=== PATIENT | male | born 1960 | race Caucasian/White ===

== ENCOUNTER → 2016-11-04 | Outpatient (CLI) | payer MEDICARE, MEDICAID ==
[2016-11-04 10:34] LABS: CHOLESTEROL 121.31 mg/dL (0-200); Direct HDL 35 mg/dL (>40); TRIGLYCERIDES 79 mg/dL (<150)
[2016-11-04 10:46] LABS: DIRECT LDL 71 mg/dL (<100)
== END ==
LOC: OD 09:24
PROVIDERS: ATTEND Internal Medicine
DX: E78.5 Hyperlipidemia, unspecified (principal); E55.9 Vitamin D deficiency, unspecified
CPT/HCPCS: 36415; 80061; 82607

== ENCOUNTER 2017-02-23 01:03 | Emergency (ER) | payer MEDICARE, MEDICAID ==
[2017-02-23] MEDS ORDERED: NORMAL SALINE 1000 ML 500 ML IV ONE (01:30)
--- NOTE | 2017-02-23 01:53 | ER Document Report ---
ED General - General Stated Complaint: CHEST DISCOMFORT Time Seen by Provider: 02/23/17 01:30 Notes: Patient is a 57-year-old male that comes emergency department for chief complaint of right-sided chest discomfort that started about 3 hours prior to arrival tonight, but he denies shortness of breath, abdominal pain, nausea, radiation to the back. He rates the pain as only 2 out of 10. He states she is allergic to aspirin. Patient was given sublingual nitroglycerin by EMS, patient states afterwards he started getting lightheaded. Past medical history of [place] with stents 2 in 2008, hyperlipidemia, hypertension, patient unsure of remaining diagnoses but he is on Spironolactone and Risperdal. Former smoker. Denies alcohol. TRAVEL OUTSIDE OF THE [place] IN LAST 30 DAYS: No Past Medical History - General Information source: Patient - Social History Smoking Status: Former Smoker Frequency of alcohol use: None Drug Abuse: None Lives with: Family Family History: None - Past Medical History Cardiac Medical History: Reports: Hx Coronary Artery Disease, Hx Heart Attack - x3, Hx Hypercholesterolemia, Hx Hypertension GI Medical History: Reports: Hx Gastroesophageal Reflux Disease Past Surgical History: Reports: Hx Cardiac Catheterization - reports 2 stents - Immunizations Hx Diphtheria, Pertussis, Tetanus Vaccination: Yes Review of Systems - Review of Systems Constitutional: No symptoms reported EENT: No symptoms reported Cardiovascular: See HPI Respiratory: No symptoms reported Gastrointestinal: No symptoms reported Genitourinary: No symptoms reported Male Genitourinary: No symptoms reported Musculoskeletal: No symptoms reported Skin: No symptoms reported Hematologic/Lymphatic: No symptoms reported Neurological/Psychological: No symptoms reported Physical Exam - Vital signs Vitals: BP 93/59 L 02/23/17 01:13 Interpretation: Normal - General General appearance: Appears well, Alert In distress: None - HEENT Head: Normocephalic, Atraumatic Eyes: Normal Pupils: PERRL - Respiratory Respiratory status: No respiratory distress Chest status: Tender - minimal discomfort with palpation of the right side of the chest over the lower aspect (no wincing, by statement only); normal appearance of the chest with no erythema, swelling, ecchymosis or other abnormality Breath sounds: Normal. No: Decreased air movement, Wheezing Chest palpation: Normal - Cardiovascular Rhythm: Regular, Bradycardia Heart sounds: Normal auscultation, S1 appreciated, S2 appreciated Murmur: No - Abdominal Inspection: Normal Distension: No distension Bowel sounds: Normal Tenderness: Nontender. No: Tender Organomegaly: No organomegaly - Back Back: Normal, Nontender - Extremities General upper extremity: Normal inspection, Nontender, Normal color, Normal ROM , Normal temperature General lower extremity: Normal inspection, Nontender, Normal color, Normal ROM , Normal temperature, Normal weight bearing. No: Greg's sign - Neurological Neuro grossly intact: Yes Cognition: Normal Orientation: AAOx4 [place] Coma Scale Eye Opening: Spontaneous Jose E Coma Scale Verbal: Oriented Jose E Coma Scale Motor: Obeys Commands Jose E Coma Scale Total: 15 Speech: Normal Motor strength normal: LUE, RUE, LLE, RLE Sensory: Normal - Psychological Associated symptoms: Normal affect, Normal mood - Skin Skin Temperature: Warm Skin Moisture: Dry Skin Color: Normal Course - Re-evaluation Re-evalutation: 02/23/17 01:30 On initial evaluation patient is pale, slightly diaphoretic, blood pressure noted to be systolic in the 80s, patient immediately placed in Trendelenburg, given 500 cc bolus of IV fluids. Blood pressure normalized, patient states lightheadedness resolved, patient's color returned to normal. Suspect this was from the sublingual nitroglycerin. Workup pending. Patient remained bradycardic and borderline hypotensive, patient states this is his norm, he used to be on Midrin for this but he became hypertensive and this was taken off. This is his baseline. Patient reevaluated again and remains comfortable. EKG showing bradycardia with no significant change from prior, chest x-ray unremarkable, CBC very similar to previous, chemistry generally unremarkable, initial cardiac enzymes negative. Cardiac enzymes repeated and still negative. On reexaminations patient continues to be asymptomatic. 02/23/17 06:00 Patient with a heart score of 3 which was him in the low risk category. Very atypical symptoms with mild 2 out of 10 right-sided lower chest pain which resolved after a few minutes. Patient denying any current chest pain. Stress test last year was normal. 2 sets of negative troponins. Chest x-ray unremarkable. EKG baseline showing patient already present bradycardia. Discussed with Dr. Grigsby. Discussed admission for chest pain rule out with patient, patient declines, states he will follow closely with his program mgr and return if he has return or worsening of pain. - Vital Signs Vital signs: Temp Pulse Resp BP Pulse Ox 97.9 F 10 L 112/61 98 02/23/17 06:10 02/23/17 06:01 02/23/17 06:01 02/23/17 06:01 - Laboratory Result Diagrams: 02/23/17 01:30 02/23/17 01:30 Laboratory results interpreted by me: 02/23/17 02/23/17 01:30 01:30 RBC 3.23 L Hgb 12.2 L Hct 36.4 L MCV 113 H MCH 37.7 H RDW 14.6 H Plt Count 100 L Monocytes % 16.9 H Absolute Monocytes 1.6 H Carbon Dioxide 20 L BUN 25 H Glucose 128 H Calcium 8.0 L AST 9 L Creatine Kinase 44 L Discharge - Discharge Clinical Impression: Right-sided chest pain Condition: Stable Disposition: HOME, SELF-CARE Additional Instructions: Your workup does not show any acute abnormality. The cause of your symptoms at this time are uncertain. Please follow up in the next 2 days with your [employer] E[employer]ctor. Return to the ED for any returned or concerning symptoms.
[2017-02-23 01:59] LABS: ALANINE AMINOTRANSFERASE 22 U/L (21-72); ALBUMIN 3.7 g/dL (3.5-5.0); ALKALINE PHOSPHATASE 90 U/L (38-126); ANION GAP 11 (5-19); ASPARTATE AMINO TRANSFERASE 9 U/L (17-59); BILIRUBIN,DIRECT 0.3 mg/dL (0.0-0.4); BILIRUBIN,TOTAL 0.7 mg/dL (0.2-1.3); BLOOD UREA NITROGEN 25 mg/dL (7-20); CARBON DIOXIDE 20 mmol/L (22-30); CHLORIDE 107 mmol/L (98-107); CREATINE KINASE 44 U/L (55-170); CREATININE RESULT 1.09 mg/dL (0.52-1.25); GLUCOSE 128 mg/dL (75-110); POTASSIUM 4.6 mmol/L (3.6-5.0); SODIUM 137.8 mmol/L (137-145); TOTAL PROTEIN 6.5 g/dL (6.3-8.2)
[2017-02-23 02:11] LABS: CREATINE KINASE MB < 0.22 ng/mL (<4.55); TROPONIN I < 0.012 ng/mL
[2017-02-23 02:17] LABS: ABSOLUTE EOSINOPHILS # (AUTO) 0.3 10^3/uL (0.0-0.6); ABSOLUTE LYMPHOCYTES (AUTO) 2.4 10^3/uL (0.5-4.7); ABSOLUTE MONOCYTES (AUTO) 1.6 10^3/uL (0.1-1.4); BASOPHILS % (AUTO) 0.3 % (0-2); EOSINOPHILS % (AUTO) 2.8 % (0-6); HEMATOCRIT 36.4 % (37.9-51.0); HEMOGLOBIN 12.2 g/dL (13.5-17.0); HGB HCT DIFFERENCE 0.2; LYMPHOCYTES % (AUTO) 26.2 % (13-45); MEAN CORPUSCULAR HEMOGLOBIN 37.7 pg (27.0-33.4); MEAN CORPUSCULAR HGB CONC 33.4 g/dL (32.0-36.0); MONOCYTES % (AUTO) 16.9 % (3-13); RED BLOOD COUNT 3.23 10^6/uL (4.35-5.55); RED CELL DISTRIBUTION WIDTH 14.6 % (11.5-14.0); SEGMENTED NEUTROPHILS % (AUTO) 53.8 % (42-78); WHITE BLOOD COUNT 9.3 10^3/uL (4.0-10.5)
[2017-02-23 02:29] LABS: MEAN CORPUSCULAR VOLUME 113 fl (80-97)
[2017-02-23 02:33] LABS: ANISOCYTOSIS SLIGHT; OVALOCYTES SLIGHT; TOXIC GRANULATION SLIGHT
--- NOTE | 2017-02-23 02:54 | RADIOLOGY REPORT (SQ) ---
EXAM DESCRIPTION: CHEST SINGLE VIEW COMPLETED DATE/TIME: 02/23/2017 2:40 am REASON FOR STUDY: cp COMPARISON: 07/16/2016. EXAM PARAMETERS: NUMBER OF VIEWS: One view. TECHNIQUE: Single frontal radiographic view of the chest acquired. RADIATION DOSE: NA LIMITATIONS: None. FINDINGS: LUNGS AND PLEURA: No opacities, masses or pneumothorax. No pleural effusion. MEDIASTINUM AND HILAR STRUCTURES: No masses. Contour normal. HEART AND VASCULAR STRUCTURES: Heart normal in size. Normal vasculature. BONES: Moderate deformity of the left mid clavicle. HARDWARE: None in the chest. OTHER: No other significant finding. IMPRESSION: NO ACUTE RADIOGRAPHIC FINDING IN THE CHEST. TECHNICAL DOCUMENTATION: JOB ID: [id number]
[2017-02-23 06:30] VITALS: BP 112/61
--- NOTE | 2017-02-23 21:13 | EKG REPORT ---
SEVERITY:- ABNORMAL ECG - SINUS RHYTHM INFERIOR INFARCT, OLD ANTERIOR INFARCT, AGE INDETERMINATE : Confirmed by: Yanet Jaquez 23-Feb-2017 21:12:18
[2017-02-24 12:14] LABS: PATH REVIEW PATHOLOGIST REVIEWED
== END 2017-02-23 06:10 | disposition home or self-care (01) ==
LOC: ER 01:03
DX: R07.9 Chest pain, unspecified (principal); Z87.891 Personal history of nicotine dependence; I25.2 Old myocardial infarction
CPT/HCPCS: 36415; 71010; 80053; 82550; 82553; 84484; 85025; 93005; 93010; 99285

== ENCOUNTER → 2017-06-02 | Outpatient (CLI) | payer MEDICARE, MEDICAID ==
[2017-06-02 11:01] LABS: ABSOLUTE EOSINOPHILS # (AUTO) 0.2 10^3/uL (0.0-0.6); ABSOLUTE MONOCYTES (AUTO) 1.1 10^3/uL (0.1-1.4); ABSOLUTE NEUT (AUTO) 3.2 10^3/uL (1.7-8.2); BASOPHILS % (AUTO) 0.3 % (0-2); EOSINOPHILS % (AUTO) 2.9 % (0-6); HEMATOCRIT 37.7 % (37.9-51.0); HEMOGLOBIN 12.8 g/dL (13.5-17.0); HGB HCT DIFFERENCE 0.7; LYMPHOCYTES % (AUTO) 39.2 % (13-45); MEAN CORPUSCULAR HEMOGLOBIN 37.7 pg (27.0-33.4); RED BLOOD COUNT 3.41 10^6/uL (4.35-5.55); RED CELL DISTRIBUTION WIDTH 14.9 % (11.5-14.0); SEGMENTED NEUTROPHILS % (AUTO) 42.6 % (42-78); WHITE BLOOD COUNT 7.6 10^3/uL (4.0-10.5)
[2017-06-02 11:04] LABS: MEAN CORPUSCULAR VOLUME 111 fl (80-97)
[2017-06-02 11:19] LABS: ALANINE AMINOTRANSFERASE 20 U/L (21-72); ALKALINE PHOSPHATASE 109 U/L (38-126); ANION GAP 9 (5-19); ASPARTATE AMINO TRANSFERASE 12 U/L (17-59); BILIRUBIN,DIRECT 0.3 mg/dL (0.0-0.4); BILIRUBIN,TOTAL 0.8 mg/dL (0.2-1.3); BLOOD UREA NITROGEN 21 mg/dL (7-20); CALCIUM 9.1 mg/dL (8.4-10.2); CARBON DIOXIDE 24 mmol/L (22-30); CHLORIDE 107 mmol/L (98-107); CHOLESTEROL 117.98 mg/dL (0-200); CREATININE RESULT 1.16 mg/dL (0.52-1.25); Direct HDL 33 mg/dL (>40); GLUCOSE 98 mg/dL (75-110); POTASSIUM 4.9 mmol/L (3.6-5.0); SODIUM 140.4 mmol/L (137-145); TOTAL PROTEIN 7.1 g/dL (6.3-8.2); TRIGLYCERIDES 106 mg/dL (<150)
[2017-06-02 11:30] LABS: TOXIC GRANULATION SLIGHT
[2017-06-02 11:31] LABS: ANISOCYTOSIS SLIGHT; OVALOCYTES 1+; PLATELET CLUMPS PRESENT; POIKILOCYTOSIS SLIGHT; TARGET CELLS SLIGHT
[2017-06-02 11:42] LABS: DIRECT LDL 68 mg/dL (<100)
[2017-06-03 09:31] LABS: PATH REVIEW PATHOLOGIST REVIEWED
== END ==
LOC: OD 09:42
PROVIDERS: ATTEND Family Medicine Geriatric Medicine
DX: I10 Essential (primary) hypertension (principal); E78.5 Hyperlipidemia, unspecified; E53.9 Vitamin B deficiency, unspecified; Z79.899 Other long term (current) drug therapy
CPT/HCPCS: 36415; 80053; 80061; 82607; 84443; 85025

== ENCOUNTER → 2018-02-16 | Outpatient (CLI) | payer MEDICARE, MEDICAID ==
--- NOTE | 2018-02-16 15:05 | RADIOLOGY REPORT (SQ) ---
EXAM DESCRIPTION: LUMBAR SPINE COMPLETE COMPLETED DATE/TIME: 02/16/2018 2:18 pm REASON FOR STUDY: LOW BACK PAIN M54.5 LOW BACK PAIN COMPARISON: CT abdomen pelvis 04/13/2014 NUMBER OF VIEWS: Five views including obliques. TECHNIQUE: AP, lateral, oblique, and sacral radiographic images acquired of the lumbar spine. LIMITATIONS: None. FINDINGS: MINERALIZATION: Osteopenic SEGMENTATION: Normal. No transitional anatomy. ALIGNMENT: Normal. VERTEBRAE: Maintained height. No fracture or worrisome bone lesion. DISCS: Disc space height is preserved. POSTERIOR ELEMENTS: Post bilateral laminectomy at L4 and L5 HARDWARE: Disc spacers at L4-5 and L5-S1. Bilateral transpedicular screws and dorsal fixation plates at L4, L5, and S1. PARASPINAL SOFT TISSUES: Normal. PELVIS: Not included in the field of view. SI joints unremarkable OTHER: No other significant finding. IMPRESSION: Lower lumbar fusion. No acute findings. TECHNICAL DOCUMENTATION: JOB ID: [id number] [email or web address]- All Rights Reserved Reading location - IP/workstation name: [email or web address]
--- NOTE | 2018-02-16 15:07 | RADIOLOGY REPORT (SQ) ---
EXAM DESCRIPTION: SACRUM AND COCCYX COMPLETED DATE/TIME: 02/16/2018 2:18 pm REASON FOR STUDY: LOW BACK PAIN M54.5 LOW BACK PAIN COMPARISON: Lumbar spine films same date CT abdomen pelvis 04/13/2014 NUMBER OF VIEWS: Three views. TECHNIQUE: AP, lateral, and tilt views of the sacrum and coccyx. LIMITATIONS: None. FINDINGS: MINERALIZATION: Osteopenic BONES: No acute fracture or dislocation. No worrisome bone lesions. SOFT TISSUES: No soft tissue swelling. No foreign body. OTHER: SI joints are unremarkable. Lower lumbar fusion hardware at L4-5 and L5-S1. IMPRESSION: No acute findings TECHNICAL DOCUMENTATION: JOB ID: [id number] [employer]- All Rights Reserved Reading location - IP/workstation name: [email or web address]
== END ==
LOC: OD 14:01
PROVIDERS: ATTEND Family Medicine Geriatric Medicine
DX: M54.5 Low back pain (principal)
CPT/HCPCS: 72110; 72220

== ENCOUNTER → 2018-04-19 | Outpatient (CLI) | payer MEDICARE, MEDICAID ==
[2018-04-19 11:05] LABS: ABSOLUTE EOSINOPHILS # (AUTO) 0.3 10^3/uL (0.0-0.6); ABSOLUTE LYMPHOCYTES (AUTO) 2.8 10^3/uL (0.5-4.7); ABSOLUTE MONOCYTES (AUTO) 0.9 10^3/uL (0.1-1.4); ABSOLUTE NEUT (AUTO) 2.3 10^3/uL (1.7-8.2); BASOPHILS % (AUTO) 0.4 % (0-2); EOSINOPHILS % (AUTO) 5.1 % (0-6); HEMATOCRIT 37.2 % (37.9-51.0); HEMOGLOBIN 12.5 g/dL (13.5-17.0); LYMPHOCYTES % (AUTO) 44.2 % (13-45); MEAN CORPUSCULAR HEMOGLOBIN 36.7 pg (27.0-33.4); MEAN CORPUSCULAR HGB CONC 33.7 g/dL (32.0-36.0); MEAN CORPUSCULAR VOLUME 109 fl (80-97); MONOCYTES % (AUTO) 14.5 % (3-13); PLATELET COUNT 124 10^3/uL (150-450); RED BLOOD COUNT 3.41 10^6/uL (4.35-5.55); RED CELL DISTRIBUTION WIDTH 14.6 % (11.5-14.0); SEGMENTED NEUTROPHILS % (AUTO) 35.8 % (42-78); TOTAL CELLS COUNTED % (AUTO) 100 %; WHITE BLOOD COUNT 6.4 10^3/uL (4.0-10.5)
[2018-04-19 12:02] LABS: ALANINE AMINOTRANSFERASE 21 U/L (21-72); ALBUMIN 4.1 g/dL (3.5-5.0); ALKALINE PHOSPHATASE 92 U/L (38-126); ANION GAP 11 (5-19); ASPARTATE AMINO TRANSFERASE 13 U/L (17-59); BILIRUBIN,DIRECT 0.3 mg/dL (0.0-0.4); BILIRUBIN,TOTAL 0.8 mg/dL (0.2-1.3); BLOOD UREA NITROGEN 19 mg/dL (7-20); CARBON DIOXIDE 22 mmol/L (22-30); CHLORIDE 109 mmol/L (98-107); CHOLESTEROL 117.91 mg/dL (0-200); GLUCOSE 96 mg/dL (75-110); POTASSIUM 4.7 mmol/L (3.6-5.0); TOTAL PROTEIN 7.7 g/dL (6.3-8.2); TRIGLYCERIDES 138 mg/dL (<150)
[2018-04-19 12:28] LABS: DIRECT LDL 60 mg/dL (<100)
== END ==
LOC: OD 10:11
PROVIDERS: ATTEND Family Medicine Geriatric Medicine
DX: I25.10 Atherosclerotic heart disease of native coronary artery without angina pectoris (principal); I10 Essential (primary) hypertension; E78.5 Hyperlipidemia, unspecified
CPT/HCPCS: 36415; 80053; 80061; 85025

== ENCOUNTER → 2018-08-16 | Outpatient (CLI) | payer MEDICARE, MEDICAID ==
[2018-08-16 10:05] LABS: ABSOLUTE EOSINOPHILS # (AUTO) 0.2 10^3/uL (0.0-0.6); ABSOLUTE LYMPHOCYTES (AUTO) 2.6 10^3/uL (0.5-4.7); ABSOLUTE MONOCYTES (AUTO) 1.1 10^3/uL (0.1-1.4); ABSOLUTE NEUT (AUTO) 2.8 10^3/uL (1.7-8.2); BASOPHILS % (AUTO) 0.6 % (0-2); EOSINOPHILS % (AUTO) 3.1 % (0-6); HEMATOCRIT 37.5 % (37.9-51.0); HEMOGLOBIN 12.8 g/dL (13.5-17.0); LYMPHOCYTES % (AUTO) 38.8 % (13-45); MEAN CORPUSCULAR HEMOGLOBIN 37.2 pg (27.0-33.4); MEAN CORPUSCULAR HGB CONC 34.1 g/dL (32.0-36.0); MEAN CORPUSCULAR VOLUME 109 fl (80-97); MONOCYTES % (AUTO) 16.4 % (3-13); RED BLOOD COUNT 3.44 10^6/uL (4.35-5.55); RED CELL DISTRIBUTION WIDTH 14.8 % (11.5-14.0); SEGMENTED NEUTROPHILS % (AUTO) 41.1 % (42-78); TOTAL CELLS COUNTED % (AUTO) 100 %; WHITE BLOOD COUNT 6.7 10^3/uL (4.0-10.5)
[2018-08-16 10:26] LABS: PLATELET COUNT 119 10^3/uL (150-450)
== END ==
LOC: OD 08:38
PROVIDERS: ATTEND Family Medicine Geriatric Medicine
DX: D69.6 Thrombocytopenia, unspecified (principal); D53.9 Nutritional anemia, unspecified; I25.10 Atherosclerotic heart disease of native coronary artery without angina pectoris
CPT/HCPCS: 36415; 82746; 83090; 85025

== ENCOUNTER 2018-11-08 16:39 | Emergency (ER) | payer MEDICARE, MEDICAID ==
[2018-11-08] MEDS ORDERED: HYDROCODONE/ACETAMINOPHEN 5-325 MG TABLET PO ONE (18:56)
--- NOTE | 2018-11-08 19:00 | ER Document Report ---
ED Medical Screen (RME) - General Chief Complaint: Foot Pain Stated Complaint: SWOLLEN FOOT Time Seen by Provider: 11/08/18 18:47 Primary Care Provider: BAIRON BELTRE MD [Primary Care Provider] - Follow up as needed Mode of Arrival: Ambulatory Information source: Patient Notes: 58-year-old's male presents emergency department with complaints of right foot pain and swelling. Patient states that symptoms started up today. He was seen by his corporate webmaster and told to come to the emergency department for concerns of cellulitis. Patient describes a diffuse throbbing throughout his entire foot as well as a sharp and stabbing sensation at the ball of his foot. He states that the pain is worse with walking. Patient also notes that his toenails have turned green. I have greeted and performed a rapid initial assessment of this patient. A comprehensive ED assessment and evaluation of the patient, analysis of test results and completion of the medical decision making process will be conducted by additional ED providers. PHYSICAL EXAMINATION: GENERAL: Well-appearing, well-nourished and in no acute distress. HEAD: Atraumatic, normocephalic. EYES: Pupils equal round extraocular movements intact, conjunctiva are normal. ENT: Nares patent NECK: Normal range of motion LUNGS: No respiratory distress Musculoskeletal: Normal range of motion NEUROLOGICAL: Normal speech. PSYCH: Normal mood, normal affect. SKIN: warmth, swelling, erythema, and tenderness to palpation to the Left big toe, arch of foot, and plantar surface. TRAVEL OUTSIDE OF THE [place] IN LAST 30 DAYS: No - Related Data Allergies/Adverse Reactions: metoprolol [From Toprol XL] Allergy (Verified 11/08/18 16:47) oxymetazoline [From Afrin (oxymetazoline)] Allergy (Verified 11/08/18 16:47) Penicillins Allergy (Verified 11/08/18 16:47) Past Medical History - Social History Chew tobacco use (# tins/day): No Frequency of alcohol use: None Drug Abuse: None - Past Medical History Cardiac Medical History: Reports: Hx Coronary Artery Disease, Hx Heart Attack - x3, Hx Hypercholesterolemia, Hx Hypertension Renal/ Medical History: Denies: Hx Peritoneal Dialysis GI Medical History: Reports: Hx Gastroesophageal Reflux Disease Past Surgical History: Reports: Hx Cardiac Catheterization - reports 2 stents - Immunizations Hx Diphtheria, Pertussis, Tetanus Vaccination: Yes Physical Exam - Vital signs Vitals: Temp Pulse Resp BP Pulse Ox 97.6 F 65 18 132/65 H 95 11/08/18 17:00 11/08/18 17:00 11/08/18 17:00 11/08/18 17:00 11/08/18 17:00 Course - Vital Signs Vital signs: Temp Pulse Resp BP Pulse Ox 97.6 F 65 18 132/65 H 95 11/08/18 17:00 11/08/18 17:00 11/08/18 17:00 11/08/18 17:00 11/08/18 17:00 Doctor's Discharge - Discharge Referrals: BAIRON BELTRE MD [Primary Care Provider] - Follow up as needed
--- NOTE | 2018-11-08 19:37 | ER Document Report ---
ED General - General Chief Complaint: Foot Pain Stated Complaint: SWOLLEN FOOT Time Seen by Provider: 11/08/18 18:47 Primary Care Provider: GORDON PATEL DPM [ACTIVE STAFF] - Follow up tomorrow BAIRON BELTRE MD [Primary Care Provider] - Follow up in 3-5 days Mode of Arrival: Ambulatory Notes: Patient is a 58-year-old male that presents to the emergency department for chief complaint of left foot pain and redness. Patient states Thursday morning he woke up his foot seem to be red swollen and painful seem to be worse over the last 24 hours as well, he did go to his telephone sterilizer today, and they evaluated this and referred him to the emergency department for concern of cellulitis. He rates the pain is having as a 6 out of 10, worse with walking on it, describes as a constant aching sensation. He denies noting any fevers, chills, night sweats, nausea, vomiting or abdominal pain. He has noticed some swelling in the left foot. Has not noticed any in the right. He states his great toe is the most pain. He also noticed that his toenails turned green over the past 2 days. He has not seen a office support assistant but has been looking to see one because his nails have gotten long and he has not trimmed him. Past Medical History: Hypertension, hyperlipidemia, CHF, CAD Past Surgical History: PCI with stenting Social History: Admits to smoking cigarettes, denies alcohol or drug use. Family History: Reviewed and noncontributory for presenting illness Allergies: Reviewed, see documented allergy list. REVIEW OF SYSTEMS: Other than noted above, the 12 point review of systems was reviewed with the patient and were negative, all pertinent findings are included in the HPI. PHYSICAL EXAMINATION: Vital signs reviewed, nursing noted reviewed. GENERAL: Well-appearing, well-nourished and in no acute distress. HEAD: Atraumatic, normocephalic. EYES: Eyes appear normal, extraocular movements intact, sclera anicteric, conjunctiva are normal. ENT: nares patent, oropharynx clear without exudates. Moist mucous membranes. NECK: Normal range of motion, supple without lymphadenopathy LUNGS: Breath sounds clear to auscultation bilaterally and equal. No wheezes rales or rhonchi. Patient noted to be wearing a LifeVest. HEART: Regular rate and rhythm without murmurs ABDOMEN: Soft, nontender, normoactive bowel sounds. No rebound, guarding, or rigidity. No masses appreciated. EXTREMITIES: The left foot is edematous, with mild erythema on the dorsal aspect, the toes are erythematous throughout, with mild ulceration versus disclamation of the pads of the toes, consistent with trench foot, no active drainage at this time. The toenails are noted to be long, and green in color, to a very milder degree, this is noted on the right foot as well, most noted on the pad of the right great toe. There is tenderness to palpation over the toes of the left foot as well. The rest the patient's extremity exam is grossly unremarkable. NEUROLOGICAL: No focal neurological deficits. Moves all extremities spontaneously Motor and sensory grossly intact on exam. PSYCH: Normal mood, normal affect. SKIN: Warm, Dry, normal turgor, no rashes or lesions noted on exposed skin TRAVEL OUTSIDE OF THE [place] IN LAST 30 DAYS: No - Related Data Allergies/Adverse Reactions: metoprolol [From Toprol XL] Allergy (Verified 11/08/18 16:47) oxymetazoline [From Afrin (oxymetazoline)] Allergy (Verified 11/08/18 16:47) Penicillins Allergy (Verified 11/08/18 16:47) Past Medical History - General Information source: Patient - Social History Smoking Status: Current Every Day Smoker Chew tobacco use (# tins/day): No Frequency of alcohol use: None Drug Abuse: None Family History: None Patient has suicidal ideation: No Patient has homicidal ideation: No - Past Medical History Cardiac Medical History: Reports: Hx Coronary Artery Disease, Hx Heart Attack - x3, Hx Hypercholesterolemia, Hx Hypertension Renal/ Medical History: Denies: Hx Peritoneal Dialysis GI Medical History: Reports: Hx Gastroesophageal Reflux Disease Past Surgical History: Reports: Hx Cardiac Catheterization - reports 2 stents - Immunizations Hx Diphtheria, Pertussis, Tetanus Vaccination: Yes Physical Exam - Vital signs Vitals: Temp Pulse Resp BP Pulse Ox 97.6 F 65 18 132/65 H 95 11/08/18 17:00 11/08/18 17:00 11/08/18 17:00 11/08/18 17:00 11/08/18 17:00 Course - Re-evaluation Re-evalutation: Patient seen and examined vital signs reviewed. Laboratory data and imaging were ordered as appropriate for the patient's presenting symptoms and complaint, with consideration of any critical or life threatening conditions that may be associated with their obtained history and exam as noted above. Patient was treated with [place] for pain, he was started on Levaquin 750 mg p.o. Results were reviewed when available and demonstrated soft tissue swelling on the x-ray, his blood work was unremarkable The patient was re-evaluated and was stable, patient will be discharged with a prescription for Levaquin 750 mg once daily for 7 days, advised to follow-up with podiatry, advised to stop wearing clogs, and to wear socks when he wear shoes, and to not wear socks when sleeping, patient was agreeable and discharged home Evaluation was most consistent with ingrid foot, left foot cellulitis Results were discussed with the patient at this point, after careful consideration I feel that that patient can be discharged from the emergency department, the patient was educated treatments and reasons to return to the emergency department based on their presumed diagnosis as noted above, they were advised to followup with a primary care physician in 2-3 days. Patient was agreeable to plan of care. *Note is created using voice recognition software and may contain spelling, sy ntax or grammatical errors. Laboratory 11/08/18 11/08/18 19:34 19:34 WBC 7.9 RBC 3.65 L Hgb 13.2 L Hct 39.6 MCV 109 H MCH 36.1 H MCHC 33.3 RDW 15.4 H Plt Count 112 L Seg Neutrophils % 43.6 Lymphocytes % 35.2 Monocytes % 18.4 H Eosinophils % 2.3 Basophils % 0.5 Absolute Neutrophils 3.4 Absolute Lymphocytes 2.8 Absolute Monocytes 1.5 H Absolute Eosinophils 0.2 Absolute Basophils 0.0 Sodium 142.5 Potassium 4.1 Chloride 108 H Carbon Dioxide 24 Anion Gap 11 BUN 15 Creatinine 0.99 Est GFR ( Amer) > 60 Est GFR (Non-Af Amer) > 60 Glucose 87 Uric Acid 6.2 Calcium 8.8 Total Bilirubin 1.1 Direct Bilirubin 0.3 Neonat Total Bilirubin Not Reportable Neonat Direct Bilirubin Not Reportable Neonat Indirect Bili Not Reportable AST 10 L ALT 13 L Alkaline Phosphatase 112 Total Protein 7.4 Albumin 4.4 Foot X-Ray 11/08/18 18:56 IMPRESSION: Diffuse dorsal left foot soft tissue swelling. No fracture. No radiopaque foreign body - Vital Signs Vital signs: Temp Pulse Resp BP Pulse Ox 98.1 F 63 16 137/65 H 97 11/08/18 20:34 11/08/18 20:34 11/08/18 20:34 11/08/18 20:34 11/08/18 20:34 - Laboratory Result Diagrams: 11/08/18 19:34 11/08/18 19:34 Laboratory results interpreted by me: 11/08/18 11/08/18 19:34 19:34 RBC 3.65 L Hgb 13.2 L MCV 109 H MCH 36.1 H RDW 15.4 H Plt Count 112 L Monocytes % 18.4 H Absolute Monocytes 1.5 H Chloride 108 H AST 10 L ALT 13 L Discharge - Discharge Clinical Impression: Cellulitis Qualifiers: Site of cellulitis: extremity Site of cellulitis of extremity: lower extremity Laterality: left Qualified Code(s): L03.116 - Cellulitis of left lower limb Trench foot of left lower extremity Qualifiers: Encounter type: initial encounter Qualified Code(s): T69.022A - Immersion foot, left foot, initial encounter Condition: Stable Disposition: HOME, SELF-CARE Instructions: Cellulitis ([facility]) Additional Instructions: Please take the antibiotic as prescribed, it should be 1 time daily for 7 days, avoid any heavy lifting while on this medication, as it can have injury to your Achilles tendon. I would advise you to wear socks when you are wearing any shoes, otherwise when you are sleeping or resting, these have your feet exposed to air, to decrease the moisture. He can apply the anti-fungal powder that is prescribed as well as directed on prescription labeling. Please follow-up with a office support assistant. As you need your nails addressed as well. Prescriptions: Levofloxacin [Levaquin 750 mg Tablet] 750 mg PO DAILY #7 tab RX: Miconazole Nitrate [Anti-Fungal Powder] 1 applic TP BID #71 gm Referrals: GORDON PATEL DPM [ACTIVE STAFF] - Follow up tomorrow BAIRON BELTRE MD [Primary Care Provider] - Follow up in 3-5 days
[2018-11-08 19:44] LABS: ABSOLUTE EOSINOPHILS # (AUTO) 0.2 10^3/uL (0.0-0.6); ABSOLUTE LYMPHOCYTES (AUTO) 2.8 10^3/uL (0.5-4.7); ABSOLUTE MONOCYTES (AUTO) 1.5 10^3/uL (0.1-1.4); ABSOLUTE NEUT (AUTO) 3.4 10^3/uL (1.7-8.2); BASOPHILS % (AUTO) 0.5 % (0-2); EOSINOPHILS % (AUTO) 2.3 % (0-6); HEMATOCRIT 39.6 % (37.9-51.0); HEMOGLOBIN 13.2 g/dL (13.5-17.0); LYMPHOCYTES % (AUTO) 35.2 % (13-45); MEAN CORPUSCULAR HEMOGLOBIN 36.1 pg (27.0-33.4); MEAN CORPUSCULAR HGB CONC 33.3 g/dL (32.0-36.0); MEAN CORPUSCULAR VOLUME 109 fl (80-97); MONOCYTES % (AUTO) 18.4 % (3-13); PLATELET COUNT 112 10^3/uL (150-450); RED BLOOD COUNT 3.65 10^6/uL (4.35-5.55); RED CELL DISTRIBUTION WIDTH 15.4 % (11.5-14.0); SEGMENTED NEUTROPHILS % (AUTO) 43.6 % (42-78); TOTAL CELLS COUNTED % (AUTO) 100 %; WHITE BLOOD COUNT 7.9 10^3/uL (4.0-10.5)
[2018-11-08 20:00] LABS: ALANINE AMINOTRANSFERASE 13 U/L (21-72); ALBUMIN 4.4 g/dL (3.5-5.0); ALKALINE PHOSPHATASE 112 U/L (38-126); ANION GAP 11 (5-19); ASPARTATE AMINO TRANSFERASE 10 U/L (17-59); BILIRUBIN,DIRECT 0.3 mg/dL (0.0-0.4); BILIRUBIN,TOTAL 1.1 mg/dL (0.2-1.3); BLOOD UREA NITROGEN 15 mg/dL (7-20); CALCIUM 8.8 mg/dL (8.4-10.2); CARBON DIOXIDE 24 mmol/L (22-30); CHLORIDE 108 mmol/L (98-107); GLUCOSE 87 mg/dL (75-110); POTASSIUM 4.1 mmol/L (3.6-5.0); SODIUM 142.5 mmol/L (137-145); TOTAL PROTEIN 7.4 g/dL (6.3-8.2); URIC ACID 6.2 mg/dL (3.5-8.5)
--- NOTE | 2018-11-08 20:01 | RADIOLOGY REPORT (SQ) ---
EXAM DESCRIPTION: FOOT LEFT COMPLETE COMPLETED DATE/TIME: 11/08/2018 7:40 pm REASON FOR STUDY: pain COMPARISON: None. NUMBER OF VIEWS: Three views. TECHNIQUE: AP, lateral and oblique radiographic images acquired of the left foot. LIMITATIONS: None. FINDINGS: MINERALIZATION: Normal. BONES: No acute fracture or dislocation. No worrisome bone lesions. JOINTS: No effusions. SOFT TISSUES: Diffuse dorsal left foot soft tissue swelling. No foreign body. Calcification of the distal Achilles tendon at the calcaneal insertion, and calcification of the plantar fascia is present . OTHER: No other significant finding. IMPRESSION: Diffuse dorsal left foot soft tissue swelling. No fracture. No radiopaque foreign body TECHNICAL DOCUMENTATION: JOB ID: [id number] [employer]- All Rights Reserved Reading location - IP/workstation name: [email or web address]
[2018-11-08] MEDS ORDERED: LEVOFLOXACIN 750 MG TABLET PO ONE (20:11)
[2018-11-08] MEDS ORDERED: HYDROCODONE/ACETAMINOPHEN 5-325 MG (6 TAB/ER DISP) PO PRN (20:33)
[2018-11-08 20:41] VITALS: BP 137/65
== END 2018-11-08 20:42 | disposition home or self-care (01) ==
LOC: ER 16:39
DX: T69.022A Immersion foot, left foot, initial encounter (principal); L03.116 Cellulitis of left lower limb; M79.672 Pain in left foot; X58.XXXA Exposure to other specified factors, initial encounter; I10 Essential (primary) hypertension; I50.9 Heart failure, unspecified; F17.210 Nicotine dependence, cigarettes, uncomplicated; I25.2 Old myocardial infarction
CPT/HCPCS: 99283; 36415; 87040; 84550; 85025; 80053; 73630; A9270 ×3

== ENCOUNTER → 2019-03-22 | Outpatient (CLI) | payer MEDICARE, MEDICAID ==
[2019-03-22 08:19] LABS: ALANINE AMINOTRANSFERASE 14 U/L (21-72); ALBUMIN 3.9 g/dL (3.5-5.0); ALKALINE PHOSPHATASE 117 U/L (38-126); ASPARTATE AMINO TRANSFERASE 11 U/L (17-59); BILIRUBIN,DIRECT 0.3 mg/dL (0.0-0.4); BILIRUBIN,TOTAL 0.7 mg/dL (0.2-1.3); CHOLESTEROL 115.96 mg/dL (0-200); TOTAL PROTEIN 7.1 g/dL (6.3-8.2); TRIGLYCERIDES 104 mg/dL (<150)
[2019-03-22 08:30] LABS: DIRECT LDL 73 mg/dL (<100)
== END ==
LOC: OD 07:11
PROVIDERS: ATTEND Family Medicine Geriatric Medicine
DX: E78.5 Hyperlipidemia, unspecified (principal); R94.5 Abnormal results of liver function studies; Z79.899 Other long term (current) drug therapy
CPT/HCPCS: 36415; 80061; 80076

== ENCOUNTER → 2019-11-02 | Outpatient (CLI) | payer MEDICARE, MEDICAID ==
--- NOTE | 2019-11-02 12:26 | RADIOLOGY REPORT (SQ) ---
EXAM DESCRIPTION: CT LUNG CANCER SCREENING COMPLETED DATE/TIME: 11/02/2019 8:25 am REASON FOR STUDY: Z67.891 PERSONAL HISTORY OF NICOTINE DEPENDENCE Z13.6 ENCOUNTER FOR SCREENING FOR CARDIOVASCULAR DISORDERS Z87.891 PERSONAL HISTORY OF NICOTINE DEPENDENCE Has the patient had a Chest CT scan within the past year? N Was the patient offered tobacco cessation counseling? Y Was the patient engaged in shared decision making for this test? Y Does the patient have signs or symptoms of Lung Cancer? N Is the patient a smoker? Y How many pack years? 53 How many years since quitting smoking? 0 Patients age: 59 COMPARISON: None. TECHNIQUE: Low Dose CT scan performed of the chest without intravenous contrast for purposes of scre ening for lung cancer. Images reviewed with lung, soft tissue and bone windows. Reconstructed coron al and sagittal MPR images reviewed. All images stored on PACS. All CT scanners at this facility use dose modulation, iterative reconstruction, and/or weight based d osing when appropriate to reduce radiation dose to as low as reasonably achievable (ALARA). [facility]: Dose Right [facility]: CareDose [facility]: Dose Right [facility]: Teradose 4D [facility]: [employer] RADIATION DOSE: CT Rad equipment meets quality standard of care and radiation dose reduction techniq ues were employed. CTDIvol: NaN mGy. DLP: 0 mGy-cm. mGy. . LIMITATIONS: No technical limitations. FINDINGS: LUNGS AND PLEURA: There is a 4 mm noncalcified pulmonary nodule in the left lower lobe (Im age 89). No suspicious mass. No pleural effusions or calcifications. No pneumothorax. Mild at electasis in the lingula and right middle lobe. HILAR AND MEDIASTINAL STRUCTURES: No identified masses. No abnormal nodes. HEART AND VASCULAR STRUCTURES: No aortic aneurysm. No pericardial effusion. No cardiac devices. CORONARY ARTERY CALCIFICATIONS: Coronary artery stent is noted. UPPER ABDOMEN, THYROID, BONES, OTHER SOFT TISSUES: Cholelithiasis. Bilateral gynecomastia. IMPRESSION: BENIGN FINDINGS IN THE LUNGS. Cholelithiasis. Moderate bilateral gynecomastia. LUNGRADS: LUNGRADS: 2 BENIGN APPEARANCE OR BEHAVIOR. NODULES WITH A VERY LOW LIKELIHOOD OF BECOMING A CLINICALLY ACTIVE CANCER DUE TO SIZE OR LACK OF GROWTH. MODIFIER: NONE. RECOMMENDATION: Continue annual screening with LDCT in 12 months. COMMENT: CRITERIA: Solid nodule(s): < 6 mm; new < 4 mm. Part solid nodule(s): < 6 mm total diameter on baseline screening. Non solid nodule(s) (GGN): < 20 mm OR ? 20 and unchanged or slowly growing. Category 3 or 4 nodules unchanged for ? 3 months. TECHNICAL DOCUMENTATION: JOB ID: [id number] Quality ID # [id number]: Final reports with documentation of one or more dose reduction techniques (e.g., Au tomated exposure control, adjustment of the mA and/or kV according to patient size, use of iterative reconstruction technique) 2010 [facility] Reading location - IP/workstation name: [email or web address]
--- NOTE | 2019-11-02 12:36 | RADIOLOGY REPORT (SQ) ---
EXAM DESCRIPTION: U/S ABD AORTIC SCREENING COMPLETED DATE/TIME: 11/02/2019 9:48 am REASON FOR STUDY: Z13.6 ENCOUNTER FOR SCREENING FOR CARDIOVASCULAR DISORDERS Z13.6 ENCOUNTER FOR SC REENING FOR CARDIOVASCULAR DISORDERS Z87.891 PERSONAL HISTORY OF NICOTINE DEPENDENCE COMPARISON: None. TECHNIQUE: Static and dynamic grayscale images acquired of the aorta and stored on PACs. Selected co perla Doppler and spectral images recorded. LIMITATIONS: None. FINDINGS: AORTIC CALIBER MAXIMAL PROXIMAL: 3 cm. MID: 2.7 cm. DISTAL: 1.8 cm. ILIAC DIAMETER RIGHT: 1.1 cm. LEFT: 1.1 cm. OTHER: No other significant finding. IMPRESSION: NO ABDOMINAL AORTIC ANEURYSM. COMMENT: Aortic aneurysm imaging followup: Negative, no followup necessary. *Based upon the Society for Vascular Surgery Guidelines: J Vasc Surg. 2009 Oct;50(4 Suppl):S2-49 *For aortas of maximum diameter of 2.6-2.9 cm meeting the criteria for AAA (?1.5 x proximal normal se gment) TECHNICAL DOCUMENTATION: JOB ID: [id number] [email or web address]- All Rights Reserved Reading location - IP/workstation name: [email or web address]
== END ==
LOC: RAD 09:04
PROVIDERS: ATTEND Family Medicine Geriatric Medicine
DX: Z13.6 Encounter for screening for cardiovascular disorders (principal); Z87.891 Personal history of nicotine dependence
CPT/HCPCS: 76706; G0297

== ENCOUNTER 2020-01-15 13:46 | Emergency (ER) | payer MEDICARE, MEDICAID ==
[2020-01-15] MEDS ORDERED: LIDOCAINE 2% VISCOUS SOLN 15 ML UDCUP PO ONE (14:23)
[2020-01-15] MEDS ORDERED: METOCLOPRAMIDE HCL ORAL SOLN 10 MG/10 ML UDCUP PO ONE (14:23)
[2020-01-15] MEDS ORDERED: MAG HYDROX/AL HYDROX/SIMETH SUSP 30 ML UDCUP PO ONE (14:23)
--- NOTE | 2020-01-15 14:25 | ER Document Report ---
ED Medical Screen (RME) - General Chief Complaint: Abdominal Pain Stated Complaint: ABDOMINAL PAIN Time Seen by Provider: 01/15/20 14:16 Primary Care Provider: BAIRON BELTRE MD [Primary Care Provider] - Follow up as needed Mode of Arrival: Ambulatory Information source: Patient Notes: 59-year-old male presented to ED for complaint of upper abdominal pain epigastri c pain. He states it is sharp and burning. He states he ate half a salad yesterday with onions and that might be what has caused this pain. He does have a history of 3 heart attacks. High blood pressure high cholesterol tremors and ulcers. He had a colonoscopy and endoscopy about 2010. He states he smokes 1/2 pack a day he used to be a heavy drinker but he does not drink at all now he does occasionally use marijuana. Patient is alert oriented respirations regular nonlabored speaking in full sentences. I have ordered labs chest x-ray upper abdominal ultrasound and EKG due to his medical history. TRAVEL OUTSIDE OF THE [place] IN LAST 30 DAYS: No - Related Data Allergies/Adverse Reactions: aspirin Allergy (Severe, Verified 01/15/20 14:16) Penicillins Allergy (Severe, Verified 01/15/20 14:16) metoprolol [From Toprol XL] Allergy (Verified 11/08/18 16:47) Past Medical History - Social History Drug Abuse: Marijuana - Past Medical History Cardiac Medical History: Reports: Hx Coronary Artery Disease, Hx Heart Attack - x3, Hx Hypercholesterolemia, Hx Hypertension Renal/ Medical History: Denies: Hx Peritoneal Dialysis GI Medical History: Reports: Hx Gastroesophageal Reflux Disease Past Surgical History: Reports: Hx Cardiac Catheterization - reports 2 stents - Immunizations Hx Diphtheria, Pertussis, Tetanus Vaccination: Yes Physical Exam - Vital signs Vitals: Temp Pulse Resp BP Pulse Ox 97.7 F 71 18 154/80 H 99 01/15/20 13:49 01/15/20 13:49 01/15/20 13:49 01/15/20 13:49 01/15/20 13:49 Course - Vital Signs Vital signs: Temp Pulse Resp BP Pulse Ox 97.7 F 71 18 154/80 H 99 01/15/20 13:49 01/15/20 13:49 01/15/20 13:49 01/15/20 13:49 04/19/20 13:49 Doctor's Discharge - Discharge Referrals: BAIRON BELTRE MD [Primary Care Provider] - Follow up as needed
[2020-01-15 15:03] LABS: HEMATOCRIT 43.8 % (37.9-51.0); MEAN CORPUSCULAR HEMOGLOBIN 37.8 pg (27.0-33.4); MEAN CORPUSCULAR HGB CONC 34.3 g/dL (32.0-36.0); MEAN CORPUSCULAR VOLUME 111 fl (80-97); PLATELET COUNT 108 10^3/uL (150-450); RED BLOOD COUNT 3.96 10^6/uL (4.35-5.55); RED CELL DISTRIBUTION WIDTH 15.8 % (11.5-14.0); WHITE BLOOD COUNT 5.9 10^3/uL (4.0-10.5)
[2020-01-15 15:07] LABS: APPEARANCE,URINE CLEAR; BILIRUBIN,URINE NEGATIVE (NEGATIVE); COLOR,URINE YELLOW; GLUCOSE, URINE NEGATIVE (NEGATIVE); KETONES,URINE NEGATIVE (NEGATIVE); PROTEIN,URINE NEGATIVE (NEGATIVE); UROBILINOGEN,URINE NEGATIVE mg/dL (<2.0)
[2020-01-15 15:16] LABS: ALBUMIN 4.4 g/dL (3.5-5.0); ALKALINE PHOSPHATASE 131 U/L (38-126); ASPARTATE AMINO TRANSFERASE 15 U/L (17-59); BLOOD UREA NITROGEN 14 mg/dL (7-20); CALCIUM 9.2 mg/dL (8.4-10.2); CHLORIDE 108 mmol/L (98-107); GLUCOSE 93 mg/dL (75-110); POTASSIUM 4.6 mmol/L (3.6-5.0); TOTAL PROTEIN 7.7 g/dL (6.3-8.2)
--- NOTE | 2020-01-15 15:18 | ER Document Report ---
ED General - General Chief Complaint: Abdominal Pain Stated Complaint: ABDOMINAL PAIN Time Seen by Provider: 01/15/20 14:16 Primary Care Provider: BAIRON BELTRE MD [Primary Care Provider] - Follow up as needed Mode of Arrival: Ambulatory Notes: Patient is a 59-year-old white male with a past medical history of 3 prior MIs with stenting, back surgery and gastric ulcers who presents the emergency department with a chief complaint of epigastric abdominal pain that began at 230 this morning. He states it feels like a hot heel stainer the abdomen. He reports this is similar to pains from his ulcers in the past. He states he ate a sandwich yesterday that had some onions on it he thinks that "did me in". He denies any nausea, vomiting or diarrhea. Denies any chest pain or shortness of breath. States he tried some Maalox at home without any improvement and was still hurting around noon so he decided to come on to the emergency department. He denies any fever or cough. No recent travel or known sick contacts. Denies any surgical history in the abdomen. He states this feels nothing like his prior heart attacks. TRAVEL OUTSIDE OF THE [place] IN LAST 30 DAYS: No - Related Data Allergies/Adverse Reactions: aspirin Allergy (Severe, Verified 01/15/20 14:16) Penicillins Allergy (Severe, Verified 01/15/20 14:16) metoprolol [From Toprol XL] Allergy (Verified 11/08/18 16:47) Past Medical History - General Information source: Patient - Social History Smoking Status: Current Every Day Smoker Drug Abuse: Marijuana Family History: None Patient has suicidal ideation: No Patient has homicidal ideation: No - Past Medical History Cardiac Medical History: Reports: Hx Coronary Artery Disease, Hx Heart Attack - x3, Hx Hypercholesterolemia, Hx Hypertension Renal/ Medical History: Denies: Hx Peritoneal Dialysis GI Medical History: Reports: Hx Gastroesophageal Reflux Disease Past Surgical History: Reports: Hx Cardiac Catheterization - reports 2 stents - Immunizations Hx Diphtheria, Pertussis, Tetanus Vaccination: Yes Review of Systems - Review of Systems Gastrointestinal: Abdominal pain -: Yes All other systems reviewed and negative Physical Exam - Vital signs Vitals: Temp Pulse Resp BP Pulse Ox 97.7 F 71 18 154/80 H 99 01/15/20 13:49 01/15/20 13:49 01/15/20 13:49 01/15/20 13:49 01/15/20 13:49 - General General appearance: Appears well, Alert In distress: None - HEENT Head: Normocephalic, Atraumatic Eyes: Normal. No: Scleral icterus Conjunctiva: Normal Eyelashes: Normal Mucous membranes: Normal Pharynx: Normal Neck: Normal, Supple - Respiratory Respiratory status: No respiratory distress Chest status: Nontender Breath sounds: Normal Chest palpation: Normal - Cardiovascular Rhythm: Regular Heart sounds: Normal auscultation - Abdominal Inspection: Normal Distension: No distension Bowel sounds: Normal Tenderness: Nontender Organomegaly: No organomegaly - Back Back: No: CVA tenderness - Neurological Neuro grossly intact: Yes Cognition: Normal Orientation: AAOx4 Jose E Coma Scale Eye Opening: Spontaneous Jose E Coma Scale Verbal: Oriented [place] Coma Scale Motor: Obeys Commands [place] Coma Scale Total: 15 Speech: Normal - Psychological Associated symptoms: Normal affect, Normal mood - Skin Skin Temperature: Warm Skin Moisture: Dry Skin Color: Normal Course - Re-evaluation Re-evalutation: 01/15/20 15:58 EKG: Sinus bradycardia. Interpreted by attending, unchanged from prior. Ultrasound showing some cholelithiasis. Work-up largely unremarkable otherwise. Counseled the patient regarding dietary precautions and referral to surgery for discussion of elective removal if warranted. Counseled him regarding the importance of outpatient follow-up and advised that he return here or any ER immediately with any new, persistent or worsening symptoms. He verbalized understood and agreed. - Vital Signs Vital signs: Temp Pulse Resp BP Pulse Ox 97.7 F 71 18 154/80 H 99 01/15/20 13:49 01/15/20 13:49 01/15/20 13:49 01/15/20 13:49 01/15/20 13:49 - Laboratory Result Diagrams: 01/15/20 14:40 01/15/20 14:40 Laboratory results interpreted by me: 01/15/20 01/15/20 01/15/20 14:40 14:40 14:40 RBC 3.96 L MCV 111 H MCH 37.8 H RDW 15.8 H Plt Count 108 L Monocytes % (Manual) 15 H Chloride 108 H Anion Gap 4 L AST 15 L Alkaline Phosphatase 131 H Urine Ascorbic Acid 40 H Discharge - Discharge Clinical Impression: Cholelithiasis Qualifiers: Cholelithiasis location: gallbladder Cholecystitis presence: without cholecystitis Biliary obstruction: without biliary obstruction Qualified Code(s): K80.20 - Calculus of gallbladder without cholecystitis without obst ruction Condition: Stable Disposition: HOME, SELF-CARE Instructions: Abdominal Pain ([facility]) Additional Instructions: Follow-up with your regular doctor in 2 to 3 days for reevaluation. Return here or any ER immediately with any new, persistent or worsening symptoms. Referrals: BAIRON BELTRE MD [Primary Care Provider] - Follow up as needed
[2020-01-15 15:22] LABS: CARBON DIOXIDE 28 mmol/L (22-30)
[2020-01-15 15:23] LABS: ANION GAP 4 (5-19)
[2020-01-15 15:31] LABS: ABSOLUTE LYMPHOCYTES# (MANUAL) 2.1 10^3/uL (0.5-4.7); ABSOLUTE MONOCYTES # (MANUAL) 0.9 10^3/uL (0.1-1.4); BASOPHILS % (MANUAL) 0 % (0-2); EOSINOPHILS % (MANUAL) 2 % (0-6); LYMPHOCYTES % (MANUAL) 36 % (13-45); MONOCYTES % (MANUAL) 15 % (3-13); SEGMENTED NEUTROPHILS % (MAN) 47 % (42-78); TOTAL CELLS COUNTED 100
--- NOTE | 2020-01-15 15:32 | RADIOLOGY REPORT (SQ) ---
EXAM DESCRIPTION: CHEST 2 VIEWS IMAGES COMPLETED DATE/TIME: 01/15/2020 2:08 pm REASON FOR STUDY: Epigastric pain COMPARISON: 07/16/2016 EXAM PARAMETERS: NUMBER OF VIEWS: two views TECHNIQUE: Digital Frontal and Lateral radiographic views of the chest acquired. RADIATION DOSE: NA LIMITATIONS: none FINDINGS: LUNGS AND PLEURA: No opacities, masses or pneumothorax. No pleural effusion. MEDIASTINUM AND HILAR STRUCTURES: No masses or contour abnormalities. HEART AND VASCULAR STRUCTURES: Heart normal size. No evidence for failure. BONES: No acute findings. HARDWARE: None in the chest. OTHER: No other significant finding. IMPRESSION: NO ACUTE RADIOGRAPHIC FINDING IN THE CHEST. TECHNICAL DOCUMENTATION: JOB ID: [id number] 2010 [employer]- All Rights Reserved Reading location - IP/workstation name: [email or web address]
[2020-01-15 15:33] LABS: ANISOCYTOSIS SLIGHT; OVALOCYTES SLIGHT; PLATELET CLUMPS PRESENT; PLATELET COMMENT DECREASED; POIKILOCYTOSIS SLIGHT; TOXIC GRANULATION 1+
--- NOTE | 2020-01-15 15:44 | RADIOLOGY REPORT (SQ) ---
EXAM DESCRIPTION: U/S ABDOMEN LIMITED W/O DOP IMAGES COMPLETED DATE/TIME: 01/15/2020 2:12 pm REASON FOR STUDY: Upper abdominal pain COMPARISON: CT lung screening, 11/02/2019 TECHNIQUE: Dynamic and static grayscale images acquired of the abdomen and recorded on PACS. Weso edi selected color Doppler and spectral images recorded. LIMITATIONS: None. FINDINGS: PANCREAS: The head of the pancreas has normal contour. Body and tail of the pancreas are obscured by bowel gas. No pancreatic ductal dilation at the proximal pancreatic duct. LIVER: No masses. Mildly increased echogenicity throughout. No focal hepatic mass. . LIVER VASCULATURE: Normal directional flow of the main portal vein and hepatic veins. GALLBLADDER: Gallstone(s). No pericholecystic fluid. No wall thickening. ULTRASOUND-DETECTED KIRKLAND'S SIGN: Negative. INTRAHEPATIC DUCTS AND COMMON DUCT: CBD and intrahepatic ducts normal caliber. No filling defects. INFERIOR VENA CAVA: Normal flow. AORTA: Partially obscured by bowel gas. The mid and distal abdominal aorta have normal caliber. RIGHT KIDNEY: Normal size. Normal echogenicity. No solid or suspicious masses. No hydronephrosis. No calcifications. PERITONEAL AND RIGHT PLEURAL SPACE: No ascites or effusions. OTHER: No other significant findings. IMPRESSION: 1. Cholelithiasis. No sonographic evidence of acute cholecystitis. 2. Mild hepatic steatosis. TECHNICAL DOCUMENTATION: JOB ID: [id number] [employer]- All Rights Reserved Reading location - IP/workstation name: [email or web address]
[2020-01-15 16:09] VITALS: BP 123/71
--- NOTE | 2020-01-15 16:31 | EKG REPORT ---
SEVERITY:- ABNORMAL ECG - OLD INFERIOR AR AND ANTERIOR WALL. SINUS BRADYCARDIA. BORDERLINE LEFT AXIS DEVIATION NONSPECIFIC T ABNORMALITIES, ANT-LAT LEADS : Confirmed by: Benjamin Moreno MD 15-Jan-2020 16:30:56
== END 2020-01-15 16:09 | disposition home or self-care (01) ==
LOC: ER 13:46
DX: K80.20 Calculus of gallbladder without cholecystitis without obstruction (principal); R10.9 Unspecified abdominal pain; F17.200 Nicotine dependence, unspecified, uncomplicated; I25.10 Atherosclerotic heart disease of native coronary artery without angina pectoris; E78.00 Pure hypercholesterolemia, unspecified; I10 Essential (primary) hypertension; Z88.6 Allergy status to analgesic agent; Z88.0 Allergy status to penicillin; I25.2 Old myocardial infarction
CPT/HCPCS: 93005; 99284; 36415; 83690; 85025; 80053; 81001; 84484; 71046; 76705; 93010; J3490; A9270 ×2

== ENCOUNTER 2020-08-27 08:27 | Emergency (ER) | payer MEDICARE, MEDICAID ==
--- NOTE | 2020-08-27 10:16 | ER Document Report ---
ED General - General Chief Complaint: Sinus Congestion Stated Complaint: CONGESTION/COUGH Time Seen by Provider: 08/27/20 10:16 Primary Care Provider: BAIRON BELTRE MD [Primary Care Provider] - Follow up as needed TRAVEL OUTSIDE OF THE [place] IN LAST 30 DAYS: No - HPI Notes: 60-year-old male chief complaint of "feel like I got the flu". Patient states that yesterday he developed right-sided sinus pressure and achiness, he has had clear rhinorrhea. Last night he developed a cough, states it is nonproductive. Denies shortness of breath. He has not taken any medications at home. He he states he lives with multiple people and all of them appear to not be currently sick, he has no known Covid exposures. - Related Data Allergies/Adverse Reactions: aspirin Allergy (Severe, Verified 01/15/20 14:16) Penicillins Allergy (Severe, Verified 01/15/20 14:16) metoprolol [From Toprol XL] Allergy (Verified 11/08/18 16:47) Past Medical History - General Information source: Patient - Social History Smoking Status: Current Every Day Smoker Chew tobacco use (# tins/day): No Frequency of alcohol use: None Drug Abuse: Marijuana Family History: None Patient has homicidal ideation: No - Past Medical History Cardiac Medical History: Reports: Hx Coronary Artery Disease, Hx Heart Attack - x3, Hx Hypercholesterolemia, Hx Hypertension Renal/ Medical History: Denies: Hx Peritoneal Dialysis GI Medical History: Reports: Hx Gastroesophageal Reflux Disease Past Surgical History: Reports: Hx Cardiac Catheterization - reports 2 stents - Immunizations Hx Diphtheria, Pertussis, Tetanus Vaccination: Yes Review of Systems - Review of Systems Constitutional: denies: Chills, Fever EENT: denies: Throat pain Cardiovascular: No symptoms reported Respiratory: Cough. denies: Short of breath Gastrointestinal: No symptoms reported Genitourinary: No symptoms reported Male Genitourinary: No symptoms reported Musculoskeletal: No symptoms reported Skin: No symptoms reported Hematologic/Lymphatic: No symptoms reported Neurological/Psychological: No symptoms reported Physical Exam - Vital signs Vitals: Temp Pulse Resp BP Pulse Ox 98.4 F 54 L 16 106/53 L 98 08/27/20 08:51 08/27/20 08:51 08/27/20 08:51 08/27/20 08:51 08/27/20 08:51 - General General appearance: Appears well, Alert In distress: None - HEENT Head: Normocephalic, Atraumatic Extraocular movements intact: Yes Pupils: PERRL External canal: Cerumen impaction - Right Tympanic membrane: No: Bulging, Injected Sinus: No: Tenderness Nasal: Clear rhinorrhea, Other - Nasal mucosal edema Mucous membranes: Moist Pharynx: Erythema. No: Exudate, Uvular edema Neck: Supple. No: Lymphadenopathy - Respiratory Breath sounds: Normal, Nonproductive cough - Cardiovascular Rhythm: Regular Heart sounds: Normal auscultation - Abdominal Tenderness: Nontender - Extremities General upper extremity: Normal ROM General lower extremity: Normal ROM - Neurological Neuro grossly intact: Yes Cognition: Normal Orientation: AAOx4 - Psychological Associated symptoms: Normal affect - Skin Skin Temperature: Warm Course - Re-evaluation Re-evalutation: 60-year-old male presents with clear rhinorrhea, sinus pressure and nonproductive cough, onset of symptoms yesterday. On exam he is well-appearing, nontoxic, afebrile and hemodynamically stable. He does have some nasal mucosal edema and some clear discharge, some mild posterior pharynx erythema but no exudates. Lungs are clear. Suspect that he has onset of acute upper respiratory illness. Will test for flu and Covid. Provide Mucinex and Sudafed for symptomatic control. Check chest x-ray to assure that no consolidation is present given his smoking status. 08/27/20 12:12 Flu swab is negative 08/27/20 12:18 Chest x-ray without consolidation 08/27/20 12:21 Patient updated on results. Discussed symptomatic care at home. Advised to quarantine at home until Covid swab result is available. Return precautions given, stable at time of discharge. - Vital Signs Vital signs: Temp Pulse Resp BP Pulse Ox 98.4 F 54 L 16 106/53 L 98 08/27/20 08:51 08/27/20 08:51 08/27/20 08:51 08/27/20 08:51 08/27/20 08:51 - Diagnostic Test Radiology reviewed: Image reviewed, Reports reviewed Discharge - Discharge Clinical Impression: Acute URI, Person under investigation for COVID-19 Disposition: HOME, SELF-CARE Instructions: COVID-19 Guidance for Persons Under Investigation Additional Instructions: Please quarantine at home until you receive results of Covid swab, typically takes 2 to 3 days. You may continue to use Mucinex and Sudafed which are available [id number]. Please return to the emergency department for any concerning worsening symptoms. Referrals: BAIRON BELTRE MD [Primary Care Provider] - Follow up as needed
[2020-08-27] MEDS ORDERED: GUAIFENESIN 600 MG TABLET.SA PO ONE (10:24)
[2020-08-27] MEDS ORDERED: PSEUDOEPHEDRINE HCL 30 MG TABLET PO ONE (10:25)
--- NOTE | 2020-08-27 11:21 | RADIOLOGY REPORT (SQ) ---
EXAM DESCRIPTION: CHEST SINGLE VIEW IMAGES COMPLETED DATE/TIME: 08/27/2020 11:14 am REASON FOR STUDY: eval consolidation COMPARISON: 01/15/2020 EXAM PARAMETERS: NUMBER OF VIEWS: One view. TECHNIQUE: Single frontal radiographic view of the chest acquired. RADIATION DOSE: NA LIMITATIONS: None. FINDINGS: LUNGS AND PLEURA: No opacities, masses or pneumothorax. No pleural effusion. MEDIASTINUM AND HILAR STRUCTURES: No masses. Contour normal. HEART AND VASCULAR STRUCTURES: Heart normal in size. Normal vasculature. BONES: No acute findings. HARDWARE: None in the chest. OTHER: No other significant finding. IMPRESSION: NO ACUTE RADIOGRAPHIC FINDING IN THE CHEST. TECHNICAL DOCUMENTATION: JOB ID: [id number] 2010 [employer]- All Rights Reserved Reading location - IP/workstation name: [email or web address]
[2020-08-27 11:57] LABS: A TYPE INFLUENZA AG NEGATIVE (NEGATIVE); B INFLUENZA AG NEGATIVE (NEGATIVE)
[2020-08-27 12:31] VITALS: BP 110/60
== END 2020-08-27 12:30 | disposition home or self-care (01) ==
LOC: ER 08:27
DX: J06.9 Acute upper respiratory infection, unspecified (principal); R09.81 Nasal congestion; R05 Cough; J34.89 Other specified disorders of nose and nasal sinuses; Z88.0 Allergy status to penicillin; F17.200 Nicotine dependence, unspecified, uncomplicated; H61.21 Impacted cerumen, right ear; Z20.828 Contact with and (suspected) exposure to other viral communicable diseases; Z88.8 Allergy status to other drugs, medicaments and biological substances
CPT/HCPCS: 99284; 87804; 71045; U0003; A9270 ×2; C9803; 87635